=== PATIENT | female | born 1960 | race Caucasian/White ===

== ENCOUNTER 2021-02-01 02:18 | Observation (INO) ==
[2021-02-01] MEDS ORDERED: methylPREDNISolone SOD SUC 125 MG/2 ML VIAL IV STA (02:42)
[2021-02-01] MEDS ORDERED: ONDANSETRON 4 MG/2 ML VIAL IV STA (02:42)
[2021-02-01] MEDS ORDERED: ALBUTEROL NEB SOLN 5 MG/ML 20 ML/BOTTLE CONT NEB SCH (03:00)
[2021-02-01 03:27] LABS: Alanine Aminotransferase 39 U/L (13-56); Albumin 3.8 G/DL (3.4-5.0); Alkaline Phosphatase 58 U/L (45-117); Aspartate Amino Transferase 49 U/L (0-37); Blood Urea Nitrogen 22 MG/DL (7-18); Calcium 8.9 MG/DL (8.5-10.1); Carbon Dioxide 24 MMOL/L (21-32); Estimated Glom Filtration Rate 30 ML/MIN; Glucose 89 MG/DL (74-106); Osmolality,Calculated 269.2 MOS/KG (273-304); Potassium 3.4 MMOL/L (3.5-5.1); Sodium 134 MMOL/L (136-145); Total Protein 7.9 G/DL (6.4-8.2)
[2021-02-01 03:35] LABS: PT Patient Result 11.4 SECS (10.5-12.0); Partial Thromboplastin Time 21.8 SECS (23.8-32.1)
[2021-02-01] MEDS ORDERED: POTASSIUM CHLORIDE 20 MEQ TABLET PO STA (03:44)
[2021-02-01 04:09] LABS: Bilirubin,Urine Negative (Negative); Blood, Urine Small mg/dL (Negative); Glucose,Urine (UA) 50 mg/dL (Negative); Ketones,Urine Negative (Negative); Nitrite,Urine Negative (Negative); Protein,Urine Negative; RBC,Urine 2 /HPF (0-4); Squamous Epithelial Cell,Urine Occasional /HPF (0-10); Urine Appearance CLEAR (Clear); Urine Color Colorless (Yellow); Urine Specific Gravity 1.003 (1.001-1.035); Urine Urobilinogen < 2.0 EU/DL (0.2-1.0)
[2021-02-01 04:22] LABS: Barbiturates Screen,Urine Negative (Negative); Benzodiazepines Screen,Urine Negative (Negative); Cannabinoid Screen,Urine Negative (Negative); Opiate Screen,Urine Negative (Negative); Phencyclidine Screen,Urine Negative (Negative)
[2021-02-01 04:25] LABS: Basophils # 0.1 10*3/uL (0.0-0.2); Basophils % 0.9 % (0.0-0.8); Eosinophils # 0.1 10*3/uL (0.0-0.87); Eosinophils % 1.7 % (0.00-10.9); Hematocrit 32.7 VOL% (35.7-47.0); Hemoglobin 11.2 GM/DL (12.0-16.0); Immature Granulocytes % 0.1 %; Immature Granulocytes Absolute 0.01 #; Lymphocytes # 3.1 10*3/uL (1.4-4.0); Lymphocytes % 44.8 % (21.3-54.2); Mean Corpuscular HGB Conc 34.3 GM/DL (32-36); Mean Corpuscular Volume 102.2 FL (87-102); Mean Platelet Volume 9.2 FL (9.6-12.0); Monocytes % 8.6 % (1.7-12.7); Neutrophils % 43.9 % (38.7-73.9); Platelet Count 229 T/CUMM (130-400); Red Cell Distribution Width 13.2 % (9.3-17.3)
[2021-02-01] MEDS ORDERED: ENOXAPARIN 100 MG/ML SYRINGE SUBCUT STA (04:41)
[2021-02-01 04:46] LABS: Hypochromasia 1+; Macrocytosis Slight
[2021-02-01 04:47] LABS: Platelet Estimate Normal
[2021-02-01] MEDS ORDERED: MORPHINE 2 MG/1 ML SYRINGE IV PRN (04:49)
[2021-02-01] MEDS: ENOXAPARIN 30 MG/0.3 ML SYRINGE SUBCUT SCH (05:16)
[2021-02-01] MEDS: ALBUTEROL/IPRATROPIUM 3 ML NEB RESP TX SCH ×4 (07:58→19:14)
[2021-02-01] MEDS ORDERED: MAGNESIUM SULF RIDER 2 GM/50 ML PREMIX IV ONE (08:42)
[2021-02-01] MEDS ORDERED: NITROGLYCERIN 2% OINT 1 INCH/GM PACK TOP SCH (09:00)
[2021-02-01] MEDS ORDERED: ASPIRIN EC 325 MG TABLET PO SCH (09:00)
[2021-02-01] MEDS: PANTOPRAZOLE 40 MG TABLET PO SCH (09:25)
[2021-02-01] MEDS: DOCUSATE SODIUM 100 MG CAPSULE PO SCH ×2 (09:25→20:53)
[2021-02-01] MEDS: SODIUM CHLORIDE 0.9% 1,000 ML IV SCH ×3 (09:35→21:03)
[2021-02-01] MEDS ORDERED: traMADol 50 MG TABLET PO PRN (11:11)
[2021-02-01] MEDS ORDERED: BENZONATATE 100 MG CAPSULE PO PRN (11:25)
[2021-02-01] MEDS ORDERED: ALBUTEROL 2.5 MG/3 ML NEB RESP TX PRN ×2 (11:31→12:00)
[2021-02-01] MEDS: DILTIAZEM 30 MG TABLET PO SCH ×3 (13:30→20:54)
[2021-02-01] MEDS: cefTRIAXone 1,000 MG in SODIUM CHLORIDE 0.9% 100 ML IV SCH (14:10)
[2021-02-01] MEDS: busPIRone 10 MG TABLET PO SCH ×2 (15:25→20:54)
[2021-02-01] MEDS: BUDESONIDE/FORMOTEROL 160-4.5 INHALER 6 GM INH SCH ×2 (15:25→20:54)
[2021-02-01] MEDS: methylPREDNISolone SOD SUC 40 MG/1 ML VIAL IV SCH (15:26)
[2021-02-01] MEDS: ACETAMINOPHEN 325 MG TABLET PO PRN (21:03)
[2021-02-02] MEDS: ALBUTEROL/IPRATROPIUM 3 ML NEB RESP TX SCH ×5 (00:13→14:12)
[2021-02-02] MEDS: methylPREDNISolone SOD SUC 40 MG/1 ML VIAL IV SCH (02:28)
[2021-02-02] MEDS: ENOXAPARIN 30 MG/0.3 ML SYRINGE SUBCUT SCH (04:11)
[2021-02-02] MEDS: ACETAMINOPHEN 325 MG TABLET PO PRN (04:20)
[2021-02-02] MEDS: SODIUM CHLORIDE 0.9% 1,000 ML IV SCH ×2 (05:44→16:42)
[2021-02-02 06:49] LABS: Basophils % 0.1 % (0.0-0.8); Hematocrit 29.1 VOL% (35.7-47.0); Hemoglobin 9.8 GM/DL (12.0-16.0); Immature Granulocytes % 0.5 %; Immature Granulocytes Absolute 0.06 #; Lymphocytes # 0.3 10*3/uL (1.4-4.0); Lymphocytes % 2.4 % (21.3-54.2); Mean Corpuscular HGB Conc 33.7 GM/DL (32-36); Mean Corpuscular Volume 103.9 FL (87-102); Mean Platelet Volume 9.2 FL (9.6-12.0); Monocytes % 4.8 % (1.7-12.7); Neutrophils % 92.2 % (38.7-73.9); Platelet Count 180 T/CUMM (130-400); Red Cell Distribution Width 13.7 % (9.3-17.3); White Blood Count 11.9 T/CUMM (4-12)
[2021-02-02 07:11] LABS: Hypochromasia 1+; Lymphocytes 2 % (20-55); Microcytosis 1+; Platelet Estimate Adequate; Segmented Neutrophils 94 % (50-85); Total Cells Counted 100
[2021-02-02 07:13] LABS: Calcium 9.6 MG/DL (8.5-10.1); Osmolality,Calculated 274.1 MOS/KG (273-304); Potassium 4.1 MMOL/L (3.5-5.1)
[2021-02-02 07:20] LABS: Albumin 3.6 G/DL (3.4-5.0); Bilirubin,Total 1.4 MG/DL (0.20-1.00); Calcium 9.3 MG/DL (8.5-10.1); Osmolality,Calculated 279.7 MOS/KG (273-304); Potassium 4.2 MMOL/L (3.5-5.1); Risk Ratio 2.1; Total Protein 7.4 G/DL (6.4-8.2); VLDL Cholesterol 9.6 MG/DL
[2021-02-02] MEDS: PANTOPRAZOLE 40 MG TABLET PO SCH (08:56)
[2021-02-02] MEDS: BUDESONIDE/FORMOTEROL 160-4.5 INHALER 6 GM INH SCH (08:56)
[2021-02-02] MEDS: DOCUSATE SODIUM 100 MG CAPSULE PO SCH (08:56)
[2021-02-02] MEDS: busPIRone 10 MG TABLET PO SCH (08:56)
[2021-02-02] MEDS ORDERED: DILTIAZEM CD 120 MG CAPSULE PO SCH (09:00)
[2021-02-02] MEDS ORDERED: MAGNESIUM CHLORIDE 64 MG TABLET PO SCH (09:00)
[2021-02-02] MEDS ORDERED: ASPIRIN EC 81 MG TABLET PO SCH (09:00)
[2021-02-02 09:32] LABS: Hematocrit 29.6 VOL% (35.7-47.0); Hemoglobin 9.8 GM/DL (12.0-16.0)
[2021-02-02 11:58] VITALS: BP 134/66
[2021-02-02] MEDS: cefTRIAXone 1,000 MG in SODIUM CHLORIDE 0.9% 100 ML IV SCH (12:54)
== END 2021-02-02 16:59 | disposition home health service (06) ==
LOC: EDBD → EDUNIT# → N.ED 02:18 → N.EDINP 02:18 → N.TELEN 14:35
PROVIDERS: ADMIT Family Medicine; ATTEND Family Medicine